=== PATIENT | male | born 1950 | race Caucasian/White ===

== ENCOUNTER → 2016-11-11 | Outpatient (CLI) | payer BC ==
[~2016-11-11] MED LIST: ALBU8.5H6 IH; AML5T PO; CLN.1T PO; FLUT12AE6 IH; HYDR-3881 PO; IPRA3AMP11 INH; LORA10TA7 PO
== END ==
LOC: LAB 07:37
PROVIDERS: ATTEND Internal Medicine Hematology & Oncology
DX: C64.1 Malignant neoplasm of right kidney, except renal pelvis (principal)
CPT/HCPCS: 36415; 82565; 84520

== ENCOUNTER → 2016-11-13 | Outpatient (CLI) | payer BC ==
--- NOTE | 2016-11-13 09:31 | Diagnostic Imaging Report ---
PROCEDURE: CT chest with contrast only. TECHNIQUE: Multiple contiguous axial images were obtained through the chest after administration of intravenous contrast. INDICATION: Concern for cancer. EXAMINATION: CT chest without contrast dated 11/13/2016. COMPARISONS: 11/07/2016. FINDINGS: There is marked motion artifact which limits evaluation of the lungs. Again noted are markedly coarsened interstitial markings throughout both lungs with scattered airspace opacities. Findings would suggest edema. An underlying chronic interstitial disease is also suspected correlate clinically. Diffuse emphysematous disease is also seen. There are more focal airspace opacities throughout the lungs. However, the previously noted density at the right lung base is improving. There are linear markings within the right middle lobe and in the medial aspect of the right lower lobe. Some of these are new and some are stable from previous. There is a linear density within the lingula. This is slightly changed in appearance since previous imaging. There is a persistent left pleural effusion which has slightly decreased in size. There is no axillary adenopathy. The mediastinum demonstrates a few scattered minimally prominent lymph nodes, stable from the previous examination. The axilla are grossly unremarkable although limited due to lack of contrast. There is cardiomegaly. There is prominence of the thoracic aorta with diffuse atherosclerotic disease. These findings are stable. Mild lobularity of the right lobe of the thyroid gland is also stable. Sonography recommended if not previously performed. Within the visualized upper abdominal structures, there is an incompletely imaged cystic lesion within the right kidney. Please see separate CT abdomen and pelvis obtained on the same day for further discussion. There are several punctate calcifications in the kidneys which could be vascular but again please see the separate report. There is a large cystic appearing lesion within the right adrenal gland. This is also further described on the CT abdomen pelvis report. It is stable from previous imaging. Left adrenal gland contains a prominent lesion as well unchanged from prior. The visualized aspects of the spleen and pancreas are grossly unremarkable. Atherosclerotic disease seen in the visualized aorta. Common bile duct appears dilated. This is a nonspecific finding as a distal obstructive process is not seen on this examination. The duct measures at least 8 mm. Gallbladder itself is mildly prominent but there is no surrounding inflammatory change. Questionable tiny calcification in the pancreatic head are noted, nonspecific perhaps due to prior history of pancreatitis. Findings of constipation noted in the visualized bowel loops. Osseous structures appear unremarkable. Postoperative changes noted along the sternum. IMPRESSION: 1. Persistent diffuse findings throughout the lungs either due to chronic interstitial disease and/or superimposed edema correlate with symptoms. 2. Scattered airspace opacities throughout the lungs, some of which have improved since previous imaging others are new. These could be areas of atelectasis with pneumonia not excluded. 3. Persistent left pleural effusion decreased in size from previous imaging. 4. Multiple findings within the visualized upper abdomen some which are better described on the separate CT of the abdomen and pelvis see the separate dictation. Additionally, there is minimal prominence of the common duct. If there are any symptoms in the right upper quadrant, sonography could further characterize. 5. Prominence of the right thyroid lobe, see above discussion. Dictated by: Dictated on workstation # [id number]
== END ==
LOC: RAD 08:21
PROVIDERS: ATTEND Internal Medicine Hematology & Oncology
DX: C64.1 Malignant neoplasm of right kidney, except renal pelvis (principal)
CPT/HCPCS: 71260; Q9967